=== PATIENT | female | born 1975 | race Caucasian/White ===

== ENCOUNTER 2017-06-03 02:10 | Emergency (ER) | payer MEDICAID, OTHER ==
[~2017-06-03] VITALS: Ht 170.2 cm; Wt 58.7 kg
[2017-06-03 02:13] VITALS: Ht 170.2 cm; Wt 58.7 kg
--- NOTE | 2017-06-03 04:09 | ERD ---
ER Documentation Chief Complaint Chief Complaint COUGH SOB SINCE YESTERDAY HPI 42-year-old female presents here to emergency department for complaints of cough shortness of breath chest pain that started yesterday. Patient has been having on and off cough for the last month. Last night, woke up with shortness of breath and chest pain. She has sharp pain, succession scale, intermittent pain accompanied with coughing. Patient denies any dyspnea on exertion or dyspnea on lying down. Patient denies any fever or chills. ROS All systems reviewed and are negative except as per history of present illness. Medications Home Meds Reported Medications [none] Unknown Strength No Conflict Check 06/03/17 Allergies Allergies: Coded Allergies: No Known Drug Allergy (Verified Allergy, Unknown, 06/03/17) PMhx/Soc Medical and Surgical Hx: pt denies Medical Hx, pt denies Surgical Hx Hx Alcohol Use: No Hx Substance Use: No Hx Tobacco Use: No Smoking Status: Never smoker FmHx Family History: No coronary disease, No diabetes, No other Physical Exam Vitals Vital Signs Date Time Temp Pulse Resp B/P Pulse Ox O2 Delivery O2 Flow Rate FiO2 06/03/17 02:13 97.0 87 20 148/79 98 Physical Exam GENERAL: The patient is well developed and appropriate for usual state of health, in no apparent distress. CHEST: Clear to auscultation bilaterally. There are no rales, wheezes or rhonchi. HEART: Regular rate and rhythm. No murmurs, clicks, rubs or gallops. No S3 or S4. ABDOMEN: Soft, nontender and nondistended. Good bowel sounds. No rebound or guarding. No gross peritonitis. No gross organomegaly or masses. No Amado sign or McBurney point tenderness. BACK: No midline or flank tenderness. EXTREMITIES: Equal pulses bilaterally. There is no peripheral clubbing, cyanosis or edema. No focal swelling or erythema. Full range of motion. Grossly neurovascularly intact. NEURO: Alert and oriented. Cranial nerves 2-12 intact. Motor strength in all 4 extremities with 5/5 strength. Sensation grossly intact. Normal speech and gait. SKIN: There is no apparent rash or petechia. The skin is warm and dry. HEMATOLOGIC AND LYMPHATIC: There is no evidence of excessive bruising or lymphedema. No gross cervical, axillary, or inguinal lymphadenopathy. Result Diagram: 06/03/1740406/03/17404 Results 24 hrs Laboratory Tests Test 06/03/17 04:05 White Blood Count 9.610^3/ul Red Blood Count 3.9710^6/ul Hemoglobin 12.3g/dl Hematocrit 36.3% Mean Corpuscular Volume 91.4fl Mean Corpuscular Hemoglobin 31.0pg Mean Corpuscular Hemoglobin Concent 33.9g/dl Red Cell Distribution Width 13.0% Platelet Count 09420^3/UL Mean Platelet Volume 9.6fl Neutrophils % 55.6% Lymphocytes % 35.3% Monocytes % 7.4% Eosinophils % 1.0% Basophils % 0.5% Nucleated Red Blood Cells % 0.0/100WBC Neutrophils # 5.410^3/ul Lymphocytes # 3.410^3/ul Monocytes # 0.710^3/ul Eosinophils # 0.110^3/ul Basophils # 0.110^3/ul Nucleated Red Blood Cells # 0.010^3/ul Sodium Level 144mmol/L Potassium Level 3.6mmol/L Chloride Level 109mmol/L Carbon Dioxide Level 22mmol/L Anion Gap 17 Blood Urea Nitrogen 11mg/dl Creatinine 0.71mg/dl Glucose Level 93mg/dl Calcium Level 9.6mg/dl Troponin I < 0.012ng/ml EKG was done, read by me and is normal sinus rhythm at a rate of 71, normal axis , there is no ST changes or changes in the EKG that indicates any cardiac emergencies at this time. Patient's EKG was also reviewed by Dr. Schwarz. Impression: no acute findings on EKG PROCEDURE: CHEST - 1 VIEW CLINICAL INDICATION: 42-year-old female with chest pain. TECHNIQUE: A single frontal PA view of the chest was performed. The images were reviewed on a PACS workstation. COMPARISON: None. FINDINGS: The cardiomediastinal silhouette has a normal appearance. There is no evidence for an infiltrate. There is no evidence for congestive heart failure. There is no evidence for pneumothorax. The osseous structures are intact. IMPRESSION: No evidence for active cardiopulmonary disease. .Oseas Yepez MD, MD Date Time Electronically viewed and signed by .Oseas Yepez MD, on 06/03/2017 04:26 .M/ CC: VASU MALAVE NP Procedures/MDM Medical Decision Making: Patient symptoms are most likely consistent with acute bronchitis, which viral in origin. There is low suspicion for Pneumonia at this time since patients lungs sounds are clear, patient O2 saturation is normal and patient doesnt show any respiratory distress. Patients chest xray doesnt show infiltrates or any other cardiopulmonary emergencies at this time. There is low suspicion for other cardiopulmonary emergencies at this time such as CHF, Pulmonary Embolism, Pneumothorax, Aortic Aneurysm or any other cardiopulmonary emergencies at this time. There is low suspicion for sepsis. Patient appears well and is hemodynamically stable. Fever is controlled with medicines. Disposition: Home. Condition: Stable Prescriptions: Guaifenesin with codeine Zyrtec ibuprofen albuterol Instructions: Patient is advised to take medications as prescribed. Patient is advised to rest. Patient advised to increase fluid intake, do humidifier at home and if possible, do salt water gargles. Patient is advised that if symptoms are worse, shortness of breath, uncontrolled fever, stridor, vomiting, worst signs and symptoms to return to emergency department immediately. Otherwise, patient is advised to follow up with primary doctor in 5-7 days. Disclaimer: Inadvertent spelling and grammatical errors are likely due to EHR/ dictation software use and do not reflect on the overall quality of patient care. Also, please note that the electronic time recorded on this note does not necessarily reflect the actual time of the patient encounter. Departure Diagnosis: Primary Impression: Acute bronchitis Bronchitis organism: unspecified organism Qualified Code: J20.9 - Acute bronchitis, unspecified organism Condition: Stable Additional Instructions: Patient is advised to take medications as prescribed. Patient is advised to rest. Patient advised to increase fluid intake, do humidifier at home and if possible, do salt water gargles. Patient is advised that if symptoms are worse, shortness of breath, uncontrolled fever, stridor, vomiting, worst signs and symptoms to return to emergency department immediately. Otherwise, patient is advised to follow up with primary doctor in 5-7 days. VASU MALAVE NP Jun 03, 2017 04:09
--- NOTE | 2017-06-03 04:26 | RADRPT ---
PROCEDURE: CHEST - 1 VIEW CLINICAL INDICATION: 42-year-old female with chest pain. TECHNIQUE: A single frontal PA view of the chest was performed. The images were reviewed on a PAC S workstation. COMPARISON: None. FINDINGS: The cardiomediastinal silhouette has a normal appearance. There is no evidence for an infiltrate. There is no evidence for congestive heart failure. There is no evidence for pneumothorax. The osseou s structures are intact. IMPRESSION: No evidence for active cardiopulmonary disease. .Oseas Yepez MD, MD Date Time Electronically viewed and signed by .Oseas Yepez MD, on 06/03/2017 04:26 .M/
[2017-06-03 04:41] LABS: ANION GAP 17 (8-16); BLOOD UREA NITROGEN 11 mg/dl (7-20); CALCIUM 9.6 mg/dl (8.4-10.2); CARBON DIOXIDE 22 mmol/L (21-31); CHLORIDE 109 mmol/L (97-110); CREATININE 0.71 mg/dl (0.44-1.00); GLUCOSE 93 mg/dl (70-220); POTASSIUM 3.6 mmol/L (3.5-5.1); SODIUM 144 mmol/L (135-144)
[2017-06-03 04:53] LABS: BASOPHIL # 0.1 10^3/ul (0.0-0.1); BASOPHILS % 0.5 % (0.0-2.0); EOSINOPHILS # 0.1 10^3/ul (0.0-0.5); HEMATOCRIT 36.3 % (37.0-47.0); HEMOGLOBIN 12.3 g/dl (12.0-16.0); LYMPHOCYTES # 3.4 10^3/ul (0.8-2.9); LYMPHOCYTES % 35.3 % (15.0-51.0); MEAN CORPUSCULAR HGB CONC 33.9 g/dl (32.0-37.0); MEAN CORPUSCULAR VOLUME 91.4 fl (82.0-101.0); MEAN PLATELET VOLUME 9.6 fl (7.4-10.4); MONOCYTE # 0.7 10^3/ul (0.3-0.9); MONOCYTES % 7.4 % (0.0-11.0); NEUTROPHIL # 5.4 10^3/ul (1.6-7.5); NEUTROPHILS % 55.6 % (39.0-77.0); PLATELET COUNT 238 10^3/UL (140-415); RED BLOOD COUNT 3.97 10^6/ul (4.20-5.40); WHITE BLOOD COUNT 9.6 10^3/ul (4.8-10.8)
[2017-06-03 05:05] LABS: TROPONIN-I < 0.012 ng/ml (0.00-0.12)
[2017-06-03] MEDS ORDERED: GUAI473L22 PO (05:11)
[2017-06-03] MEDS ORDERED: ALBU8.5H3 INH (05:11)
[2017-06-03] MEDS ORDERED: CETI10CA PO (05:11)
== END 2017-06-03 05:17 | disposition home or self-care (01) ==
LOC: FTE 02:10
DX: J20.9 Acute bronchitis, unspecified (principal)
CPT/HCPCS: 36415; 71010; 80048; 84484; 85025; 93005; Z7502